=== PATIENT | female | born 1970 | race Caucasian/White ===

== ENCOUNTER 2017-01-24 14:08 | Observation (INO) ==
--- NOTE | 2017-01-24 14:57 | Emergency Department Note ---
Disposition Clinical Impression: Chest pain, Abnormal EKG, Hyperlipidemia, Smoker Disposition: Admitted As Inpatient Condition: Good Referrals: Kieran Wallace DO [Primary Care Provider] - Forms: ED Satisfaction Letter General Adult HPI - General Chief complaint: ED Chest Pain Stated complaint: chest pain Time Seen by Provider: 01/24/17 14:43 Source: patient Limitations: no limitations - History of Present Illness HPI Narrative: 46-year-old female reports emergency department describing chest pain which radiated down both arms earlier today. She is being evaluated for coronary artery disease and had a nondiagnostic stress test. The patient has no known coronary disease but does have a history of hypercholesterolemia and is a smoker. She also has a family history of coronary disease including her uncle and grandmother. The patient has no previous cardiac stent is not had a heart catheter in the past. There is no history of leg swelling or pain or coughing up blood no syncope no history of malignancy or PE or DVT. There is no history of chest trauma cough or fever. No rashes. No abdominal pain vomiting or diarrhea. No trouble walking talking hearing seeing or speaking convulsions or confusion. She describes a headache which seems to be resolving she has a long history of chronic recurrent cephalgia has had negative MRIs of her brain with no previous history of intracranial aneurysm mass or tumor. Previous brain surgery. The patient describes tingling in both arms. There is no history of prior chest surgery or shankar vascular disease. No history of cervical surgery or disc disease. Pain Scale: 8 - Related Data Home Medications Medication Instructions Recorded Confirmed Atorvastatin [Lipitor] 40 mg PO HS 01/24/17 01/24/17 Omeprazole [PriLOSEC] 20 mg PO DAILY 01/24/17 01/24/17 Potassium Chloride [Klor-Con 10] 10 meq PO BID 01/24/17 01/24/17 Venlafaxine XR (24 HR) [Effexor XR] 150 mg PO DAILY 01/24/17 01/24/17 Allergies Allergy/AdvReac Type Severity Reaction Status Date / Time azithromycin [From Zithromax] Allergy Blurry Verified 07/05/15 13:40 Vision codeine Allergy Itching Verified 07/05/15 13:40 morphine Allergy Itching Verified 07/05/15 13:40 meperidine [From Demerol] AdvReac Itching Verified 07/05/15 13:40 All systems ED: reviewed and negative except as stated. Past Medical History - Past Medical History Medical history: Reports: GERD, hyperlipidemia, migraine Surgical history: Reports: no surgical history Psychiatric history: Reports: no psych history - Social History Smoking Status: Current every day smoker Smokeless Tobacco Status: No Alcohol use: Reports: rarely Drug use: Reports: none Physical Exam - General Limitations: no limitations General appearance: alert, in no apparent distress - Head Head exam: atraumatic, normocephalic, normal inspection - Eye Eye exam: Present: normal appearance, PERRL, EOMI. Absent: scleral icterus, conjunctival injection, miosis, mydriasis - ENT ENT exam: normal exam, normal oropharynx, mucous membranes moist, TM's normal bilaterally, normal external ear exam - Neck Neck exam: Present: normal inspection, full ROM, trachea midline. Absent: tenderness - Chest Chest inspection: Present: symmetric chest wall rise. Absent: tenderness - Respiratory Respiratory exam: Present: normal lung sounds bilaterally. Absent: respiratory distress, accessory muscle use, prolonged expiratory phase - Cardiovascular Cardiovascular exam: Present: regular rate, normal rhythm, normal heart sounds - Abdominal Exam Abdominal exam: Present: soft, Non-Tender, normal bowel sounds. Absent: tenderness, distention, guarding, rebound, rigidity, pulsatile mass - Extremities Exam Extremities exam: Present: normal inspection, full ROM, normal capillary refill. Absent: tenderness, pedal edema, joint swelling, calf tenderness - Expanded Lower Extremity Exam Lower leg exam: Absent: Homans' sign Neurovascular/Tendon exam: Present: normal capillary refill. Absent: pulse deficit, motor deficit, sensory deficit, tendon deficit, extremity cold to touch , pallor - Back Exam Back exam: Present: normal inspection, full ROM. Absent: tenderness, CVA tenderness (R), CVA tenderness (L), vertebral tenderness - Neurological Exam Neurological exam: Present: alert, oriented X3, CN II-XII intact. Absent: motor sensory deficit - Psychiatric Psychiatric exam: Present: normal affect, normal mood - Skin Skin exam: Present: warm, dry, intact, normal color. Absent: rash, cyanosis, diaphoresis, erythema, pallor, mottled Course Vital Signs Temperature 98.0 F 01/24/17 14:09 Pulse Rate 82 01/24/17 14:09 Respiratory Rate 14 01/24/17 14:09 Blood Pressure 161/101 01/24/17 14:09 O2 Sat by Pulse Oximetry 100 01/24/17 14:09 Temperature 98.0 F 01/24/17 14:09 Pulse Rate 65 01/24/17 16:35 Respiratory Rate 18 01/24/17 16:35 Blood Pressure 130/79 01/24/17 16:35 O2 Sat by Pulse Oximetry 99 01/24/17 16:35 Oxygen Delivery Oxygen Delivery Room Air Medical Decision Making - MDM Narrative Medical decision making narrative: The patient is 46, she is a smoker antihyperlipidemic with a family history of coronary artery disease and has a notably abnormal EKG, she recently had a nondiagnostic cardiac evaluation and is had recurrent chest pain. Based on her risk factors for acute coronary syndrome, abnormal EKG and chest pain with undefined cardiovascular status, I thought it be appropriate to admit the patient hospital. Aspirin was ordered. I reviewed the case with the hospitalist on-call who has accepted the patient to their care. - Lab Data Lab results reviewed: Yes I reviewed the patient's lab results. Result diagrams: 01/24/17 15:08 01/24/17 15:08 Lab Results 01/24/17 01/24/17 01/24/17 Range/Units 15:08 15:08 15:08 WBC 9.9 (4.3-11.1) K/mcL RBC 4.38 (3.82-4.97) M/mcL Hgb 12.5 (11.5-15.4) g/dL Hct 37.6 (35.3-44.9) % MCV 85.8 (83.0-100.0) fL MCH 28.5 (28.0-33.3) pg MCHC 33.2 (31.6-35.5) g/dL RDW 12.9 (11.5-14.5) % Plt Count 413 H (140-400) K/mcL MPV 8.6 L (9.4-12.4) fL Immature Gran % 0.3 (0-4) % Seg Neutrophils % 64.3 % Lymphocytes % 25.8 % Monocytes % 7.1 % Eosinophils % 1.9 % Basophils % 0.6 % Neutrophils # 6.4 (1.6-8.9) K/mcL Lymphocytes # 2.6 (0.6-4.6) K/mcL Monocytes # 0.7 (0.0-1.3) K/mcL Eosinophils # 0.2 (0.0-0.6) K/mcL Basophils # 0.1 (0.0-0.2) K/mcL Immature Plt Fraction 1.6 (1.1-6.1) % PT 10.8 (9.4-12.1) Seconds INR 1.0 APTT 30.9 (26.0-36.0) Seconds Sodium 141 (136-145) mEq/L Potassium 3.3 L (3.5-4.5) mEq/L Chloride 107 (98-109) mEq/L Carbon Dioxide 26 (19-29) mEq/L BUN 12 (7-20) mg/dL Creatinine 0.68 (0.57-1.11) mg/dL Est GFR ( Amer) > 60 (> 60) Est GFR (Non-Af Amer) > 60 (> 60) BUN/Creatinine Ratio 18 (6-26) Glucose 86 (70-99) mg/dL Calculated Osmolality 291 (280-300) Calcium 8.9 (8.6-10.8) mg/dL Total Bilirubin 0.4 (0.2-1.2) mg/dL Direct Bilirubin 0.2 (0.0-0.5) mg/dL Indirect Bilirubin 0.2 (0.0-1.2) mg/dL AST 15 (5-34) Units/L ALT 17 (0-55) Units/L Alkaline Phosphatase 103 (38-126) Units/L Troponin I (0-0.03) ng/mL C-Reactive Protein 6 H (Less than 5) mg/L Serum Total Protein 6.6 (6.0-8.3) g/dL Albumin 3.6 (3.5-5.0) g/dL Globulin 3.0 (2.4-3.5) g/dL Albumin/Globulin Ratio 1.2 (1.1-2.2) Lipase 29 (8-78) Units/L // Range/Units 15:08 WBC (4.3-11.1) K/mcL RBC (3.82-4.97) M/mcL Hgb (11.5-15.4) g/dL Hct (35.3-44.9) % MCV (83.0-100.0) fL MCH (28.0-33.3) pg MCHC (31.6-35.5) g/dL RDW (11.5-14.5) % Plt Count (140-400) K/mcL MPV (9.4-12.4) fL Immature Gran % (0-4) % Seg Neutrophils % % Lymphocytes % % Monocytes % % Eosinophils % % Basophils % % Neutrophils # (1.6-8.9) K/mcL Lymphocytes # (0.6-4.6) K/mcL Monocytes # (0.0-1.3) K/mcL Eosinophils # (0.0-0.6) K/mcL Basophils # (0.0-0.2) K/mcL Immature Plt Fraction (1.1-6.1) % PT (9.4-12.1) Seconds INR APTT (26.0-36.0) Seconds Sodium (136-145) mEq/L Potassium (3.5-4.5) mEq/L Chloride (98-109) mEq/L Carbon Dioxide (19-29) mEq/L BUN (7-20) mg/dL Creatinine (0.57-1.11) mg/dL Est GFR ( Amer) (> 60) Est GFR (Non-Af Amer) (> 60) BUN/Creatinine Ratio (6-26) Glucose (70-99) mg/dL Calculated Osmolality (280-300) Calcium (8.6-10.8) mg/dL Total Bilirubin (0.2-1.2) mg/dL Direct Bilirubin (0.0-0.5) mg/dL Indirect Bilirubin (0.0-1.2) mg/dL AST (5-34) Units/L ALT (0-55) Units/L Alkaline Phosphatase (38-126) Units/L Troponin I 0.00 (0-0.03) ng/mL C-Reactive Protein (Less than 5) mg/L Serum Total Protein (6.0-8.3) g/dL Albumin (3.5-5.0) g/dL Globulin (2.4-3.5) g/dL Albumin/Globulin Ratio (1.1-2.2) Lipase (8-78) Units/L - Radiology Data Radiology results reviewed: Yes I reviewed the patient's radiology results.
[2017-01-24 15:14] LABS: Basophils # 0.1 K/mcL (0.0-0.2); Basophils % 0.6 %; Eosinophils # 0.2 K/mcL (0.0-0.6); Eosinophils % 1.9 %; Hematocrit 37.6 % (35.3-44.9); Hemoglobin 12.5 g/dL (11.5-15.4); Immature Granulocytes % 0.3 % (0-4); Immature Platelets 1.6 % (1.1-6.1); Lymphocytes # 2.6 K/mcL (0.6-4.6); Lymphocytes % 25.8 %; Mean Corpuscular HGB Conc 33.2 g/dL (31.6-35.5); Mean Corpuscular Hemoglobin 28.5 pg (28.0-33.3); Mean Corpuscular Volume 85.8 fL (83.0-100.0); Mean Platelet Volume 8.6 fL (9.4-12.4); Monocytes # 0.7 K/mcL (0.0-1.3); Monocytes % 7.1 %; Neutrophils # 6.4 K/mcL (1.6-8.9); Platelet Count 413 K/mcL (140-400); Red Blood Count 4.38 M/mcL (3.82-4.97); Red Cell Distribution Width 12.9 % (11.5-14.5); Segmented Neutrophils % 64.3 %
[2017-01-24 15:21] LABS: Prothrombin Time 10.8 Seconds (9.4-12.1)
[2017-01-24 15:24] LABS: Activated Partial Thrombo Time 30.9 Seconds (26.0-36.0)
[2017-01-24 15:25] LABS: BUN/Creatinine Ratio 18 (6-26); Blood Urea Nitrogen 12 mg/dL (7-20); Calcium 8.9 mg/dL (8.6-10.8); Carbon Dioxide 26 mEq/L (19-29); Chloride 107 mEq/L (98-109); Glucose 86 mg/dL (70-99); Osmolality,Calculated 291 (280-300); Potassium 3.3 mEq/L (3.5-4.5); Sodium 141 mEq/L (136-145); eGFR For African Americans > 60 (> 60); eGFR For Non-African Americans > 60 (> 60)
[2017-01-24] MEDS ORDERED: Aspirin 325 MG TABLET PO ONE (15:58)
[2017-01-24 16:35] LABS: Alanine Aminotransferase 17 Units/L (0-55); Albumin 3.6 g/dL (3.5-5.0); Albumin/Globulin Ratio 1.2 (1.1-2.2); Alkaline Phosphatase 103 Units/L (38-126); Aspartate Amino Transferase 15 Units/L (5-34); Bilirubin,Direct 0.2 mg/dL (0.0-0.5); Bilirubin,Indirect 0.2 mg/dL (0.0-1.2); Bilirubin,Total 0.4 mg/dL (0.2-1.2); C-Reactive Protein 6 mg/L (Less than 5); Lipase 29 Units/L (8-78); Total Protein 6.6 g/dL (6.0-8.3)
[2017-01-24] MEDS ORDERED: GI Cocktail 40 ML EACH PO ONE (16:38)
[2017-01-24] MEDS ORDERED: Naloxone 0.4 MG/ML INJ IVP PRN (18:48)
--- NOTE | 2017-01-24 19:58 | Internal Med History&Physical ---
<Brenda August M - Last Filed: 01/24/17 20:39> Date of Encounter: 01/24/17 Time of Encounter: 19:54 Assessment and Plan (1) Chest pain Current visit: Yes Status: Acute Patient reports sudden onset of severe, sharp chest pain waking her from sleep at 1pm this afternoon, radiating down her bilateral arms with numbness and tingling to bilateral arms. She has been having intermittent chest pain for the last several weeks, and had an outpatient exercise stress test on 01/04/17 which was indeterminate for ischemia due to baseline EKG ST abnormalities. EKG today showed no changes from previous. Troponin negative at 0.0 continuous vehicle monitor technician serial troponins nuclear stress and echocardiogram in the morning. Qualifiers: Chest pain type: precordial pain Qualified Code(s): R07.2 - Precordial pain (2) Smoker Current visit: Yes Status: Acute Patient smokes 1/2 PPD. discussed smoking cessation and encouraged her to quit. Nicotine patch ordered. (3) Hypokalemia Current visit: Yes Status: Acute Potassium of 3.3. Patient takes 10mEq of potassium BID. Will give 20mEq PO tonight. Recheck chemistry in the morning. (4) DVT prophylaxis Current visit: Yes Status: Acute encourage ambulation anti-embolic stockings Lovenox 40mg sQ daily Internal Medicine - H&P: HPI Chief complaint: chest pain Admitted From: Emergency Dept Plans for Post Hospital Care: Home History of present illness: Ms. Danita Antonio is a 46 year old female with hyperlipidemia, migraines, anxiety , acid reflux, presented to the emergency department today with complaints of chest pain. Fortunately the rn shift mgr last night came home this morning and had some lights in her vision she went to sleep and woke up at about 1 PM with sudden, sharp and burning pain in the middle of her chest which radiated down both arms with numbness and tingling in both arms. She describes the pain as severe. She reports accompanying shortness of breath, lightheadedness, and nausea. She denies palpitations, vomiting, abdominal pain, diarrhea, fever, chills, sweats. She did have a recent exercise stress as an outpatient for complaints of intermittent chest pain which was indeterminate for ischemia due to based ST abnormalities. Evaluation in the emergency department included chest x-ray which showed no acute cardiopulmonary process. EKG showed sinus rhythm with nonspecific ST abnormalities which is unchanged from previous EKG. Troponin was negative at 0.0. On exam, patient is alert and oriented, in no acute distress. Lungs are clear bilaterally to auscultation heart is regular rate and rhythm. Past Med Surg Social Fam HX - Past Medical History Medical history: GERD, hyperlipidemia, migraine Psychiatric history: anxiety - Past Surgical History Surgical History: appendectomy, hysterectomy, orthopedic, other (ankle) - Social History Smoking Status: Current every day smoker (15 pack year history) Smokeless Tobacco Status: No Alcohol use: rarely Drug use: none - Family History Father Living Status: Age at : 57 Cause of : lung ca Hx Family Cancer: Yes Mother Living Status: Still Living Hx Family Cardiac Disorders: Yes Hx Family Endocrine Disorder: Yes (diabetes) Internal Medicine - H&P: Meds Atorvastatin [Lipitor] 40 mg PO HS 01/24/17 [History] Omeprazole [PriLOSEC] 20 mg PO DAILY 01/24/17 [History] Potassium Chloride [Klor-Con 10] 10 meq PO BID 01/24/17 [History] Venlafaxine XR (24 HR) [Effexor XR] 150 mg PO DAILY 01/24/17 [History] Allergies azithromycin [From Zithromax] Allergy (Verified 07/05/15 13:40) Blurry Vision codeine Allergy (Verified 07/05/15 13:40) Itching morphine Allergy (Verified 07/05/15 13:40) Itching meperidine [From Demerol] Adverse Reaction (Verified 07/05/15 13:40) Itching All Systems PM: A 10-system review of systems was performed and is negative for pertinent findings except as documented above in the HPI. - Constitutional Constitutional: no chills, no fever(s), no night sweats - EENT Eyes: no change in vision, no discharge, no pain, no photophobia Ears: no ear discharge, no ear pain, no tinnitus Nose, mouth and throat: no dysphagia, no nasal discharge, no neck pain, no sore throat - Cardiovascular Cardiovascular ROS IM: chest pain, dyspnea, lightheadedness, no diaphoresis, no palpitations, no syncope - Respiratory Respiratory: dyspnea, no cough, no wheezing, no excessive phlegm production - Gastrointestinal Gastrointestinal: no abdominal pain, no diarrhea, no hematemesis, no hematochezia, no melena, no nausea, no vomiting - Genitourinary Genitourinary: no change in urinary stream, no dysuria, no flank pain, no hematuria - Musculoskeletal Musculoskeletal ROS IM: numbness (Bilateral arms), tingling (Bilateral arms) - Integumentary Integumentary IM: no rash, no unusual bruising - Neurological Neurological ROS: numbness (Bilateral arms), tingling (Bilateral arms), no confusion, no convulsions, no focal weakness, no tremor(s) - Hematologic/Lymphatic Hematologic/Lymphatic: no easy bruising - Constitutional Vitals: Temp Pulse Resp BP Pulse Ox 98.0 F 60 15 147/87 95 01/24/17 14:09 01/24/17 19:10 01/24/17 19:10 01/24/17 19:10 01/24/17 19:10 General appearance: Present: A&O X 3, pleasant, no acute distress - Head Head exam: Present: atraumatic, normocephalic - Eye Eye exam: Present: PERRL, conjuntiva pink, sclera anicteric Pupils: Present: PERRL - Neck Neck exam general surgery: Present: supple, trachea midline. Absent: lymphadenopathy - Respiratory Respiratory exam: Present: CTAB. Absent: accessory muscle use, rales, rhonchi, wheezes - Cardiovascular Cardiovascular exam: Present: RRR, +S1, +S2. Absent: diastolic murmur, gallop, rubs, systolic murmur - GI/Abdominal GI/Abdominal exam: Present: normal bowel sounds, soft, no peritoneal signs. Absent: distended, tenderness - Extremities Exam Extremities exam: Present: warm, radial pulses palpable and symetrical. Absent : calf tenderness, cyanotic, pedal edema - Neurological Exam Neurological exam: Present: CN II-XII intact, oriented X3, no focal deficits. Absent: facial droop, speech deficit - Skin Skin exam: Present: dry, intact Internal Med - H&P Results - Labs CBC & Chem 7: 01/24/17 15:08 01/24/17 15:08 Labs: All Lab Results (24 Hours) 01/24/17 01/24/17 01/24/17 Range/Units 15:08 15:08 15:08 WBC 9.9 (4.3-11.1) K/mcL RBC 4.38 (3.82-4.97) M/mcL Hgb 12.5 (11.5-15.4) g/dL Hct 37.6 (35.3-44.9) % MCV 85.8 (83.0-100.0) fL MCH 28.5 (28.0-33.3) pg MCHC 33.2 (31.6-35.5) g/dL RDW 12.9 (11.5-14.5) % Plt Count 413 H (140-400) K/mcL MPV 8.6 L (9.4-12.4) fL Immature Gran % 0.3 (0-4) % Seg Neutrophils % 64.3 % Lymphocytes % 25.8 % Monocytes % 7.1 % Eosinophils % 1.9 % Basophils % 0.6 % Neutrophils # 6.4 (1.6-8.9) K/mcL Lymphocytes # 2.6 (0.6-4.6) K/mcL Monocytes # 0.7 (0.0-1.3) K/mcL Eosinophils # 0.2 (0.0-0.6) K/mcL Basophils # 0.1 (0.0-0.2) K/mcL Immature Plt Fraction 1.6 (1.1-6.1) % PT 10.8 (9.4-12.1) Seconds INR 1.0 APTT 30.9 (26.0-36.0) Seconds Sodium 141 (136-145) mEq/L Potassium 3.3 L (3.5-4.5) mEq/L Chloride 107 (98-109) mEq/L Carbon Dioxide 26 (19-29) mEq/L BUN 12 (7-20) mg/dL Creatinine 0.68 (0.57-1.11) mg/dL Est GFR ( Amer) > 60 (> 60) Est GFR (Non-Af Amer) > 60 (> 60) BUN/Creatinine Ratio 18 (6-26) Glucose 86 (70-99) mg/dL Calculated Osmolality 291 (280-300) Calcium 8.9 (8.6-10.8) mg/dL Total Bilirubin 0.4 (0.2-1.2) mg/dL Direct Bilirubin 0.2 (0.0-0.5) mg/dL Indirect Bilirubin 0.2 (0.0-1.2) mg/dL AST 15 (5-34) Units/L ALT 17 (0-55) Units/L Alkaline Phosphatase 103 (38-126) Units/L Troponin I (0-0.03) ng/mL C-Reactive Protein 6 H (Less than 5) mg/L Serum Total Protein 6.6 (6.0-8.3) g/dL Albumin 3.6 (3.5-5.0) g/dL Globulin 3.0 (2.4-3.5) g/dL Albumin/Globulin Ratio 1.2 (1.1-2.2) Lipase 29 (8-78) Units/L 04// Range/Units 15:08 WBC (4.3-11.1) K/mcL RBC (3.82-4.97) M/mcL Hgb (11.5-15.4) g/dL Hct (35.3-44.9) % MCV (83.0-100.0) fL MCH (28.0-33.3) pg MCHC (31.6-35.5) g/dL RDW (11.5-14.5) % Plt Count (140-400) K/mcL MPV (9.4-12.4) fL Immature Gran % (0-4) % Seg Neutrophils % % Lymphocytes % % Monocytes % % Eosinophils % % Basophils % % Neutrophils # (1.6-8.9) K/mcL Lymphocytes # (0.6-4.6) K/mcL Monocytes # (0.0-1.3) K/mcL Eosinophils # (0.0-0.6) K/mcL Basophils # (0.0-0.2) K/mcL Immature Plt Fraction (1.1-6.1) % PT (9.4-12.1) Seconds INR APTT (26.0-36.0) Seconds Sodium (136-145) mEq/L Potassium (3.5-4.5) mEq/L Chloride (98-109) mEq/L Carbon Dioxide (19-29) mEq/L BUN (7-20) mg/dL Creatinine (0.57-1.11) mg/dL Est GFR ( Amer) (> 60) Est GFR (Non-Af Amer) (> 60) BUN/Creatinine Ratio (6-26) Glucose (70-99) mg/dL Calculated Osmolality (280-300) Calcium (8.6-10.8) mg/dL Total Bilirubin (0.2-1.2) mg/dL Direct Bilirubin (0.0-0.5) mg/dL Indirect Bilirubin (0.0-1.2) mg/dL AST (5-34) Units/L ALT (0-55) Units/L Alkaline Phosphatase (38-126) Units/L Troponin I 0.00 (0-0.03) ng/mL C-Reactive Protein (Less than 5) mg/L Serum Total Protein (6.0-8.3) g/dL Albumin (3.5-5.0) g/dL Globulin (2.4-3.5) g/dL Albumin/Globulin Ratio (1.1-2.2) Lipase (8-78) Units/L - Diagnostic Studies Chest x-ray Additional comments: Chest X-Ray 01/24/17 14:16 IMPRESSION: No acute cardiopulmonary process. D/ / Elsa Jansen MD / Elsa Jansen MD Interpreting Provider: Elsa Jansen MD <Armando Garcia - Last Filed: 01/25/17 00:30> Date of Encounter: 01/24/17 Internal Medicine - H&P: HPI History of present illness: Ms. Danita Antonio is a 46 year old female All Systems PM: A 10-system review of systems was performed and is negative for pertinent findings except as documented above in the HPI. - Constitutional Vitals: Temp Pulse Resp BP Pulse Ox 97.8 F 62 16 105/61 94 01/24/17 23:19 01/24/17 23:19 01/24/17 23:19 01/24/17 23:19 01/24/17 23:19 Internal Med - H&P Results - Labs CBC & Chem 7: 01/24/17 15:08 01/24/17 15:08 Labs: Cardiac Enzymes 01/24/17 Range/Units 21:15 Troponin I 0.00 (0-0.03) ng/mL - Attending Attestation I personally interviewed and examined this patient and my medical decision- making was reviewed with the Advanced Practice Nurse. I agree with the documented findings, disposition and treatment plan as described.
[2017-01-25] MEDS: Acetaminophen 325 MG TABLET PO PRN ×2 (04:00→10:16)
[2017-01-25 04:47] LABS: Basophils # 0.1 K/mcL (0.0-0.2); Basophils % 0.6 %; Eosinophils # 0.2 K/mcL (0.0-0.6); Hematocrit 37.2 % (35.3-44.9); Hemoglobin 12.4 g/dL (11.5-15.4); Immature Granulocytes % 0.4 % (0-4); Lymphocytes # 2.4 K/mcL (0.6-4.6); Lymphocytes % 31.3 %; Mean Corpuscular HGB Conc 33.3 g/dL (31.6-35.5); Mean Corpuscular Hemoglobin 29.2 pg (28.0-33.3); Mean Corpuscular Volume 87.7 fL (83.0-100.0); Mean Platelet Volume 9.2 fL (9.4-12.4); Monocytes # 0.5 K/mcL (0.0-1.3); Monocytes % 6.9 %; Neutrophils # 4.5 K/mcL (1.6-8.9); Platelet Count 344 K/mcL (140-400); Red Blood Count 4.24 M/mcL (3.82-4.97); Red Cell Distribution Width 13.2 % (11.5-14.5); Segmented Neutrophils % 57.8 %
[2017-01-25 05:07] LABS: BUN/Creatinine Ratio 17 (6-26); Blood Urea Nitrogen 11 mg/dL (7-20); Calcium 8.7 mg/dL (8.6-10.8); Carbon Dioxide 28 mEq/L (19-29); Chloride 110 mEq/L (98-109); Glucose 90 mg/dL (70-99); Osmolality,Calculated 299 (280-300); Phosphorous 3.5 mg/dL (2.3-4.7); Potassium 3.8 mEq/L (3.5-4.5); Sodium 145 mEq/L (136-145); eGFR For African Americans > 60 (> 60); eGFR For Non-African Americans > 60 (> 60)
[2017-01-25] MEDS ORDERED: Regadenoson 0.4 MG/5 ML SYRINGE IVP ONE (06:14)
[2017-01-25] MEDS ORDERED: *HR* Enoxaparin 40 MG/0.4 ML SYRINGE SQ SCH (07:00)
--- NOTE | 2017-01-25 08:27 | ECHO - Doppler Report ---
Echocardiogram Name: Tawnya Antonio Date of Study: 01/25/2017 Date: 1970 Ht: 68.0 in Medical Record#: [id number] Age: 46 Wt: 226.0 lb Gender: Female BSA: 2.15 Order #: [id number] Location: [facility] Room #: [id number] Reading Physician: Deepa Garcia DO Newspaper Or Periodical Editor: Swapnil Goodman RN Ordering Physician: Brenda August CNP Primary Physician: Kieran Wallace DO Indications: Chest pain Impressions: LVEF 65%. Normal left ventricular size and systolic function. There is evidence of moderate diastolic dysfunction of the left ventricle. Normal right ventricular size and function. No significant valvular dysfunction. No pulmonary hypertension. Left Ventricular Wall Motion: Rest Echo Findings All wall segments showed normal motion. Findings: Study Quality * Technically adequate exam. ECG Findings * Sinus bradycardia. Left Ventricle * LVEF 65%. * Normal LV chamber size, wall thickness and function. * Moderate left ventricular diastolic dysfunction. Left Atrium * Normal left atrial size. Mitral Valve * Normal mitral valve structure. * No mitral stenosis. * Trace mitral regurgitation. Aortic Valve * Trileaflet aortic valve. * Normal aortic valve structure. * No aortic stenosis. * Trace aortic regurgitation. Tricuspid Valve * Tricuspid valve not well visualized. * Trace tricuspid regurgitation. * Estimated RA pressure is 3 mmHg. * Estimated RVSP is 26 mmHg. * No pulmonary hypertension. Pulmonic Valve * Pulmonic valve is not well visualized. * No pulmonic stenosis. * No pulmonic regurgitation. Pulmonary Artery * Pulmonary artery not well visualized. Right Ventricle * Normal right ventricular structure and function. Right Atrium * Normal right atrial size. Interatrial Septum * No evidence of PFO by color Doppler. Pericardium * There is no pericardial effusion present. IVC * Normal IVC dimensions and inspiratory collapse. Aorta * Normally sized aortic root. History Hypercholesteremia History of Smoking Years 30 Packs 0.5 Measurements: BP: 92/ 52 2D Normal Values RVIDd: 3.30 cm <2.7 cm IVSd: 1.10 cm 0.6 - 1.0 cm LVIDd: 4.50 cm 3.7 - 5.6 cm LVPWd: 1.10 cm 0.6 - 1.1 cm LVIDs: 2.80 cm 1.5 - 3.6 cm LA: 4.60 cm 2.0 - 4.0cm %FS: 37.80 cm >25 % LVOT Diam: 2.00 cm LA volume: 64 Mitral Valve Peak E:.81 m/sec Peak A:.55 m/sec E/A Ratio:1.5 Peak E' Lat Mo:10 cm/s Peak E' Med Mo:7.31 cm/s E/E' Lat Ratio:8.1 E/E' Med Ratio:11 Aortic Valve AI pressure Half-time: 599.00 msec Tricuspid Valve TV Regurg Peak Grad: 23.00mmHg TV Regurg Peak Mo: 2.38m/sec Updated by Deepa Garcia on 01/25/2017 8:20:38 AM electronically signed on 01/25/2017 8:21:08 AM with status of Final Wall Motion [place]: 1=Normal, 2=Hypokinesis, 3=Akinesis, 4=Dyskinesis, 5=Aneurysmal, 6=Hyperkinetic, X=Not Visualized (Blank)=Missing
[2017-01-25] MEDS ORDERED: Nicotine 21 MG PATCH.TD24 TD SCH (09:00)
[2017-01-25] MEDS ORDERED: Venlafaxine XR (24 HR) 150 MG CAP.ER.24H PO SCH (09:00)
--- NOTE | 2017-01-25 10:30 | Nuclear Medicine Stress Report ---
Regadenoson Nuclear Stress Name: Tawnya Antonio Date of Study: 01/25/2017 Date: 1970 Ht: 68.0 in Medical Record#: [id number] Age: 46 Wt: 228.0 lb Gender: Female Order #: [id number] Location: [facility] Room: [facility] Supervising Provider: Sherita Salazar CNP Reading Physician: Deepa Garcia DO Ordering Physician: Leisa Negrete CNP Primary Care Physician: Kieran Wallace DO Stress Technologist: Azra Cherry, NAOMY Wallpaper Installer: Neo Lazaro Indications: Chest Pain Impression: Perfusion imaging was negative for ischemia or infarct. [place] and apical inferior wall artifact. Pharmacologic ECG was negative for ischemia at the level of heart rate achieved. Gated EF = 69%. History: Hypertension History of Smoking Stress Test Summary: Stress Test Type: Pharmacologic Regadenoson 0.4mg/5ml given IV Baseline Information: Initial Heart Rate: 57 Blood Pressure: 112/82 Stress Information: Test Terminated Due to (primary): As per protocol Maximum Blood Pressure: 100/78 Maximum Heart Rate: 89 Percent Maximum Heart Rate Achieved: 51 Double Product: 9790 METS Reached: 1 Symptoms: No chest symptoms Nuclear Summary: SPECT myocardial perfusion imaging using Tc99m Sestamibi given intravenously was performed at rest and following cardiac stress testing. The resting images were obtained following initial dose of 10.6 mCi. Following stress an additional dose of 35.3 mCi was given at peak exercise or 30 seconds post regadenoson infusion. Medication Given: Time Medication Dose Units Route Findings: Stress Note * Resting ECG demonstrated normal sinus rhythm with nonspecific ST abnormalities. * Pharmacologic stress ECG is negative for ischemia at level of heart rate achieved. * No arrhythmias were noted during stress. * Patient had no chest pain during stress. Hemodynamic responses * Normal hemodynamic responses to pharmacologic stress. Study Quality * Study quality was fair. Gated EF % * Gated EF = 69%. Left Ventricle * The left ventricle is not dilated. TID * No evidence of transient ischemic dilatation. Lung Uptake * There is no evidence of increase lung uptake. NORMALS * Normal wall motion. PERFUSION * There is a small sized, fixed perfusion defect involving the apex and apical inferior wall. Wall motion is normal. * Other areas demonstrate normal perfusion. Updated by Deepa Garcia on 01/25/2017 10:24:18 AM electronically signed on 01/25/2017 10:25:17 AM with status of Final
[2017-01-25 16:06] VITALS: BP 109/68
--- NOTE | 2017-01-25 17:55 | Discharge Summary ---
<JamarcusLesvia Monicalance Elias - Last Filed: 01/25/17 18:26> Date of Encounter: 01/25/17 Time of Encounter: 11:30 - Discharge Diagnosis (1) Chest pain Priority: Primary Status: Acute Qualifiers: Chest pain type: precordial pain Qualified Code(s): R07.2 - Precordial pain (2) Numbness and tingling Priority: Primary Status: Acute (3) Abnormal EKG Priority: Secondary Status: Acute (4) Hyperlipidemia Priority: Secondary Status: Chronic Qualifiers: Hyperlipidemia type: unspecified Qualified Code(s): E78.5 - Hyperlipidemia , unspecified (5) Smoker Priority: Secondary Status: Chronic (6) Hypokalemia Priority: Secondary Status: Resolved (7) DVT prophylaxis Priority: Secondary Status: Acute - Discharge Medications Prescriptions: Nicotine Patch [Nicoderm] 21 mg TD DAILY #30 patch.td24 Omeprazole [PriLOSEC] 40 mg PO DAILY #30 cap Home Medications: Atorvastatin [Lipitor] 40 mg PO HS 01/24/17 [History] Potassium Chloride [Klor-Con 10] 10 meq PO BID 01/24/17 [History] Venlafaxine XR (24 HR) [Effexor Xr] 150 mg PO DAILY 01/24/17 [History] Nicotine Patch [Nicoderm] 21 mg TD DAILY #30 patch.td24 01/25/17 [Rx] Omeprazole [PriLOSEC] 40 mg PO DAILY #30 cap 01/25/17 [Rx] Allergies/Adverse Reactions: Allergies azithromycin [From Zithromax] Allergy (Verified 07/05/15 13:40) Blurry Vision codeine Allergy (Verified 07/05/15 13:40) Itching morphine Allergy (Verified 07/05/15 13:40) Itching meperidine [From Demerol] Adverse Reaction (Verified 07/05/15 13:40) Itching Procedures/tests Complete & Pending: Procedures Performed prior 72 hours Category Date Time Status NM dave perf SPECT multi [NM] Routine Exams 01/24/17 19:53 Taken MR cervical spine wo con [MR] Stat MRI 01/25/17 14:26 Completed EV echocardiogram Routine Y 01/25/17 19:53 Completed SP pharm nuclear stress Routine Y 01/25/17 07:30 Completed Date of admission: 01/24/17 17:58 Primary care physician: Tj Flores Discharging clinician: Hayes Alvarado Anticipated date of discharge: 01/25/17 - Patient Status Disposition: Home, Self-Care Condition: Good Functional capacity at discharge: independent ambulation Overall status at discharge: patient is back to baseline - Discharge Instructions Instructions: Omeprazole (By mouth), Nicotine (Absorbed through the skin) Follow Up With: Kieran Wallace DO [Primary Care Provider] - 02/02/17 10:30 am - Diet and Activity Activity: increase activity as tolerated Diet: low fat, low cholesterol Hospital course: Ms. Danita Antonio is a 46 year old female who presented to [facility] ED on 01/24/17 for chest pain with radiation down bilateral arms. Patient states that arms were tingling with an associated burning sensation. Patient previously had a nondiagnostic stress test on 01/04/17. Upon presentation to hospital, patient was found to have abnormal ST changes on EKG. Troponins remained negative. Patient had a nuclear stress test today that was negative for ischemia. ECHO demonstrated LVEF 65%, normal LV size/function, moderate diastolic dysfunction of LV, normal RV size/functionn, no valvular dysfunction, no pulmonary HTN. Patient reportedly has a long history of neck pain. Cervical MRI demonstrated Mild C5-6 degenerative disc disease with broad-based right posterior paracentral disc osteophyte complex causing mild spinal canal stenosis and mild right C6 neural foraminal narrowing and 2. Mild bilateral C4 neural foraminal narrowing secondary to uncovertebral hypertrophy, which may explain numbness and tingling to bilateral arms. Patient had no focal neurologic findings on exam. However, she will require further work-up by PCP for causes of arm numbness and tingling. Also, patient complained of uncontrolled GERD symptoms. We have increased Omperazole to 40mg po 1 hour before first meal of the day. Patient is instructed to discuss with PCP if GERD and epigastric tenderness do not resolve. Patient will follow up with PCP. Patient is a current smoker. The risks of smoking were discussed with patient. Patient verbalized understanding. Patient is in stable condition for discharge. Medications upon discharge: Omeprazole 40mg, Nicoderm TD patches. Time spent discussing smoking cessation with patient: 3 to 10 minutes (8 minutes discussing smoking cessation. patient verbalized understanding) - Time Spent with Patient Total time spent providing and/or coordinating discharge services: Greater than 30 minutes (45 minutes including time with patient and coordinating care) - Constitutional Vitals: Temp Pulse Resp BP Pulse Ox 98.3 F 60 15 109/68 94 01/25/17 16:05 01/25/17 16:05 01/25/17 16:05 01/25/17 16:05 01/25/17 16:05 General appearance: Present: A&O X 3, pleasant, no acute distress - Head Head exam: Present: atraumatic, normocephalic - Eye Eye exam: Present: PERRL, conjuntiva pink, sclera anicteric - Neck Neck exam general surgery: Present: supple, trachea midline. Absent: lymphadenopathy - Respiratory Respiratory exam: Present: chest wall tenderness (to left and right parasternal ribs), CTAB. Absent: accessory muscle use, rales, rhonchi, wheezes - Cardiovascular Cardiovascular exam: Present: RRR, +S1, +S2. Absent: diastolic murmur, gallop, rubs, systolic murmur - GI/Abdominal GI/Abdominal exam: Present: normal bowel sounds, soft, tenderness (epigastric), no peritoneal signs. Absent: distended - Extremities Exam Extremities exam: Present: warm, radial pulses palpable and symetrical. Absent : calf tenderness, cyanotic, pedal edema - Neurological Exam Neurological exam: Present: CN II-XII intact, oriented X3, reflexes normal, no focal deficits, strengths equal and symetr throughout. Absent: facial droop, speech deficit - Skin Skin exam: Present: dry, intact - Other Additional findings: Chest X-Ray 01/24/17 14:16 IMPRESSION: No acute cardiopulmonary process. D/ / Elsa Jansen MD / Elsa Jansen MD Interpreting Provider: Elsa Jansen MD Cervical Spine MRI 01/25/17 14:26 IMPRESSION: 1. Mild C5-6 degenerative disc disease with broad-based right posterior paracentral disc osteophyte complex causing mild spinal canal stenosis and mild right C6 neural foraminal narrowing. 2. Mild bilateral C4 neural foraminal narrowing secondary to uncovertebral hypertrophy. D/ / Arsh Roe MD / Arsh Roe MD Interpreting Provider: Arsh Roe MD <Hayes Alvarado - Last Filed: 01/25/17 19:22> Date of Encounter: 01/25/17 Procedures/tests Complete & Pending: Procedures Performed prior 72 hours Category Date Time Status NM dave perf SPECT multi [NM] Routine Exams 01/24/17 19:53 Taken MR cervical spine wo con [MR] Stat MRI 01/25/17 14:26 Completed EV echocardiogram Routine Y 01/25/17 19:53 Completed SP pharm nuclear stress Routine Y 01/25/17 07:30 Completed Date of admission: 01/24/17 17:58 Primary care physician: Tj Flores [facility] course: Ms. Danita Antonio is a 46 year old female - Time Spent with Patient Total time spent providing and/or coordinating discharge services: - Constitutional Vitals: Temp Pulse Resp BP Pulse Ox 98.3 F 60 15 109/68 94 01/25/17 16:05 01/25/17 16:05 01/25/17 16:05 01/25/17 16:05 01/25/17 16:05 - Attending Attestation I examined this patient and my medical decision-making was reviewed with the Resident Physician, Dr Lesvia Ricketts. I agree with the documented findings, disposition and treatment plan as described. the patient presented for evaluation of sudden onset chest pain while she was lying down which walk her up from sleep. The pain lasted for 30 minutes and was described as burning substernal radiating to the shoulders and both arms and subsided without intervention after about 30 minutes. She does report numbness in both arms left more than right that has been progressive over the last 3 months. 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 She had serial troponin which was negative, telemetry was negative, echocardiogram and stress test showed no evidence of fixed ischemia or structural heart disease. Her chest pain did not recur and I suspect is related to GERD. I will increase her PPI to Nexium 40 mg daily. I am concerned of her progressive numbness and both upper extremities which could be attributed to progressive demyelinating disease versus cervical radiculopathy versus Chiari malformation and therefore we obtain a cervical spine MRI which shows mild foraminal narrowing. Recommend follow-up with primary care physician.
--- NOTE | 2017-01-25 19:25 | Electrocardiograph Report ---
[address] [address] Test Date: 2017-01-24 Pat Name: Tawnya Antonio Department: 104 Room: 3B45 Gender: F Director [employer]: : 1970 Requested By: Molly See Order Number: [id number] Reading MD: Gary Colorado MD Measurements Intervals [place] Rate: 70 P: 72 LA: 167 QRS: 9 QRSD: 93 T: 7 QT: 409 QTc: 430 Interpretive Statements SINUS RHYTHM Electronically Signed On 01-25-2017 19:23:34 EDT by Gary Colorado MD
== END 2017-01-25 18:55 | disposition home or self-care (01) ==
LOC: EMEROO 14:08 → 3BNU 14:08
PROVIDERS: ADMIT Internal Medicine; ATTEND Registered Nurse